=== PATIENT | male | born 1940 | race Caucasian/White ===

== ENCOUNTER 2017-01-26 08:03 | Inpatient (IN) ==
[2017-01-26] MEDS ORDERED: ASPIRIN PO STA (08:18)
[2017-01-26] MEDS ORDERED: ALBUTEROL NEB INH ONE (08:41)
[2017-01-26] MEDS ORDERED: ATROVENT NEB INH ONE (08:43)
[2017-01-26] MEDS ORDERED: SOLU-MEDROL IV ONE (08:43)
[2017-01-26 08:45] LABS: BASO% 0.4 % (0.0-0.8); EOS# 0.09 X1000 (0.0-0.7); EOS% 0.6 % (0.0-10.0); HEMATOCRIT 34.1 % (42.0-52.0); HEMOGLOBIN 10.8 g/dL (14.0-18.0); IMM GRAN# 0.04 X1000 (0.0-0.04); IMM GRAN% 0.3 % (0.0-0.5); LYMPH# 1.15 X1000 (1.2-3.4); LYMPH% 7.5 % (20.5-51.1); MANUAL DIFF NEEDED? NO; MCHC 31.7 g/dL (33-37); MONO# 0.86 X1000 (0.11-0.59); MONO% 5.6 % (1.7-9.3); MPV 11.4 FL (7.4-10.4); NEUT% 85.6 % (42.2-75.2); PLT 201 X1000 (130-400); RBC 3.48 XMIL (4.7-6.1)
--- NOTE | 2017-01-26 08:45 | Diag Imaging Result Doc PS360 ---
EXAM: CHEST-1 VIEW INDICATION: CP TECHNIQUE: One view COMPARISON: 08/18/2016 FINDINGS: The lungs are somewhat hyperinflated, stable. The lungs are grossly clear. There is no discrete pleural fluid collection or pneumothorax. The cardiomediastinal silhouette and central vasculature are grossly unremarkable. IMPRESSION: Suggestion of at least mild COPD that is stable. No definite acute pathology. Electronically signed by Pablo Rivera 01/26/2017 8:43 AM
[2017-01-26 09:00] LABS: INR 0.99; PROTIME 10.4 Seconds (9.2-11.7); PTT 28.9 Seconds (22.0-36.0)
[2017-01-26 09:08] LABS: ALBUMIN 4.4 g/dL (3.5-5.0); CALCIUM 9.7 mg/dL (8.8-10.2); MAGNESIUM 1.8 mg/dL (1.5-2.7); POTASSIUM 4.7 mmol/L (3.5-5.1); TOTAL BILIRUBIN 0.53 mg/dL (0.20-1.00)
--- NOTE | 2017-01-26 10:07 | EKG Report ---
Test Performed on : 01/26/2017 08:13:47 AM Test Reason : sob Blood Pressure : / mmHG Vent. Rate : 118 BPM Atrial Rate : 118 BPM P-R Int : 156 ms QRS Dur : 088 ms QT Int : 314 ms P-R-T Axes : 085 072 068 degrees QTc Int : 440 ms Sinus tachycardia. with occasional premature ventricular complexes. Nonspecific ST abnormality Abnormal ECG When compared with ECG of 13-DEC-2016 11:14, premature ventricular complexes. are now present ST now depressed in Inferior leads Unconfirmed Result
[2017-01-26] MEDS ORDERED: ROCEPHIN 1 GM/NS 1 GM/50 ML IVPB IV ONE (10:43)
[2017-01-26] MEDS ORDERED: ZITHROMAX 500 MG/NS 500 MG/250 ML IVPB IV ONE (10:43)
[2017-01-26 11:07] LABS: ALLEN TEST YES; BE 8.9 mmoll (-3.0-3.0); BLOOD TYPE ARTERIAL; DRAW SITE R RADIAL; METHB 0.9 % (0.0-1.5); O2(CT) 14.4 mL/dL (15.0-23.0); PO2(98.6) 124 mmHg (60-100); SAMPLE BLOOD; SAO2 100.3 % (95.0-100.0); THB 10.3 g/dL (11.5-17.4); pH(98.6) 7.43 (7.35-7.45)
[2017-01-26 11:10] LABS: MODALITY CANNULA; PCO2(98.6) 52 mmHg (35-45)
--- NOTE | 2017-01-26 12:11 | PROVIDER DOCUMENTATION ---
This chart was entered by Grant Perez Scribe, acting as scribe for Victoriano Whitfield MD. HPI-Respiratory General - General Chief Complaint: Shortness of Breath Stated Complaint: SOB/ELEVATED HEART RATE Time Seen by Provider: 01/26/17 08:41 Source: patient Allergies/Adverse Reactions: Patient Allergies Allergy/AdvReac Type Severity Reaction Status Date / Time No Known Allergies Allergy Verified 01/26/17 09:40 Home Medications: Home Medication List Medication Instructions Recorded Confirmed Last Taken Type Budesonide [Pulmicort] 01/26/17 Unknown History Cyclobenzaprine [Flexeril] 1 tab PO BID 01/26/17 01/26/17 Unknown History Digoxin 125 mcg PO DAILY 01/26/17 01/26/17 Unknown History Diltiazem HCl [Diltiazem ER] 120 mg PO BID 01/26/17 01/26/17 Unknown History Ferrous Sulfate 325 mg PO DAILY 01/26/17 01/26/17 Unknown History Fluticasone/Salmeterol [Advair 01/26/17 Unknown History 250-50 Diskus] Furosemide 40 mg PO DAILY 01/26/17 01/26/17 Unknown History Lisinopril/Hydrochlorothiazide 1 tab PO DAILY 01/26/17 01/26/17 Unknown History [Lisinopril-Hctz 20-12.5 mg Tab] Magnesium 01/26/17 Unknown History Meloxicam [Mobic] 15 mg PO DAILY 01/26/17 01/26/17 Unknown History Metoprolol [Lopressor] 50 mg PO DAILY 01/26/17 01/26/17 Unknown History Montelukast Sodium [Singulair] 10 mg PO DAILY 01/26/17 01/26/17 Unknown History Omeprazole 20 mg PO DAILY 01/26/17 01/26/17 Unknown History Roflumilast [Daliresp] 1 tab PO DAILY 01/26/17 01/26/17 Unknown History Tiotropium [place] Inhaler 18 mcg IH DAILY 01/26/17 01/26/17 Unknown History [Spiriva] - History of Present Illness-Resp Nature of Presenting Problem: patient is a 76 y/o M that presents to the ER with a few days of shortness of breath that has gotten worse. He is on continuous O2 at home due to COPD. His o2 saturation 74% on 4L. Patient reports runny nose and cough(productive). denies fever/chills, n/v/d, or chest pain Quality of Pain: reports: tightness Severity in ED: reports: moderate Onset/Duration: reports: gradual, other (few days) Timing: reports: still present, getting worse Context: denies: recent URI, out of meds, sports/exercise Cough Quality/Degree: reports: moderate, productive cough Episode Frequency: chronic episodes Current Respiratory Medication Therapy: Initiated see nurses note Modifying Factors: worse with: coughing Associated Symptoms: reports: cough, nasal drainage, shortness of breath, short of breath. denies: dizziness, earache, fever/chills, flu-like symptoms, sore throat Recently seen or treated by another doctor?: No Review of Systems - Adult - REVIEW OF SYSTEMS - ADULT Constitutional: denies: chills, fever Eyes: reports: no symptoms reported Ears, Nose, Mouth & Throat: reports: sinus problem. denies: ear discharge, ear pain, throat pain, throat swelling Cardiovascular: denies: chest pain, syncope Respiratory: reports: cough, shortness of breath Gastrointestinal: denies: abdominal pain, nausea, vomiting Genitourinary: reports: no symptoms reported Musculoskeletal: reports: no symptoms reported Integumentary: reports: no symptoms reported Neurological: denies: dizziness/vertigo, headache/migraines Psychiatric: reports: no symptoms reported Endocrine: reports: no symptoms reported Hematologic/Lymphatic: reports: no symptoms reported Allergic/Immunologic: reports: no symptoms reported All Other Systems: Reviewed and Negative Past History - Adult - PAST MEDICAL HISTORY-ADULT Review of Records: reports: Old Records Reviewed, Nursing Assessment Review, Medications Reviewed Cardiovascular: reports: HTN Respiratory: reports: COPD Musculoskeletal: reports: chronic pain (backpain) - PRIOR SURGERIES/PROCEDURES Surgical/Procedure History: reports: appendectomy - IMMUNIZATION STATUS Childhood Immunizations: UTD Flu Vaccine: See Nurse Assessment - FAMILY HISTORY Family History: reviewed, not pertinent - SOCIAL HISTORY Smoking: quit greater than 1 year, cigarettes Living Situation: family Physical Exam-General - PHYSICAL EXAM-ADULT Initial Vital Signs Reviewed: Yes - CONSTITUTIONAL General Appearance: alert, mild distress - EYES Eyes: PERRL/EOMI, pink conjunctivae - HEAD, EARS, NOSE, MOUTH & THROAT HENMT: normocephalic/atraumatic, moist mucous membranes, normal ENT inspection - NECK Neck: full range of motion, normal inspection - RESPIRATORY Respiratory: no respiratory distress, no accessory muscle use, wheezing - CARDIOVASCULAR Cardiovascular: no edema, no JVD, tachycardia - GASTROINTESTINAL (ABDOMEN) Abdominal Exam: normal bowel sounds, non tender, soft - MUSCULOSKELETAL Extremity: normal range of motion, normal inspection, no pedal edema - SKIN Integumentary: normal color, warm/dry - NEUROLOGIC Neurologic: student liaison officer II-XII nml as tested, no motor/sensory deficits - PSYCHIATRIC Psych/Mental Status: normal mood/affect, normal thought content, normal thought process, oriented x 3 Progress - PLAN OF CARE/RESULTS Progress/Plan/Lab Results: Vital Signs - 8 hr 01/26/17 08:14 01/26/17 08:50 Temperature 98.3 F Pulse Rate 122 H 97 H Respiratory Rate 20 16 Blood Pressure 118/90 O2 Sat by Pulse Oximetry 98 94 L Laboratory Results - last 24 hr 01/26/17 01/26/17 01/26/17 08:30 08:30 08:30 WBC 15.43 H RBC 3.48 L Hgb 10.8 L Hct 34.1 L MCV 98.0 MCH 31.0 MCHC 31.7 L RDW Std Deviation 13.3 Plt Count 201 MPV 11.4 H Immature Gran % (Auto) 0.3 Neut % (Auto) 85.6 H Lymph % (Auto) 7.5 L [place] % (Auto) 5.6 Eos % (Auto) 0.6 Baso % (Auto) 0.4 Immature Gran # (Auto) 0.04 Neut # (Auto) 13.23 H Lymph # (Auto) 1.15 L [place] # (Auto) 0.86 H Eos # (Auto) 0.09 Baso # (Auto) 0.06 PT INR PTT (Actin FS) D-Dimer Specimen Type Sample Site pH pCO2 pO2 HCO3 Base Excess Oxyhemoglobin ABG O2 Sat (Calculated) ABG O2 Saturation ABG Carboxyhemoglobin ABG Methemoglobin Mazin Test A-a O2 Difference Total Hemoglobin Lactate Liter Flow Blood Gas Modality FiO2 % Sodium 142 Potassium 4.7 Chloride 96 L Carbon Dioxide 32 Anion Gap 14 BUN 23 H Creatinine 1.3 H Estimated GFR/1.73 m2 54 BUN/Creatinine Ratio 18 Glucose 164 H Calculated Osmolality 290 Calcium 9.7 Magnesium 1.8 Total Bilirubin 0.53 AST 29 ALT 29 Alkaline Phosphatase 112 Creatine Kinase 45 Troponin T Mrr-Q-Ecsycsczgij Pept 314 Total Protein 8.0 Albumin 4.4 Globulin 3.6 Albumin/Globulin Ratio 1.2 Plasma Lactate 01/26/17 01/26/17 01/26/17 08:30 08:30 08:45 WBC RBC Hgb Hct MCV MCH MCHC RDW Std Deviation Plt Count MPV Immature Gran % (Auto) Neut % (Auto) Lymph % (Auto) [place] % (Auto) Eos % (Auto) Baso % (Auto) Immature Gran # (Auto) Neut # (Auto) Lymph # (Auto) [place] # (Auto) Eos # (Auto) Baso # (Auto) PT INR PTT (Actin FS) D-Dimer 0.12 Specimen Type Sample Site pH pCO2 pO2 HCO3 Base Excess Oxyhemoglobin ABG O2 Sat (Calculated) ABG O2 Saturation ABG Carboxyhemoglobin ABG Methemoglobin Mazin Test A-a O2 Difference Total Hemoglobin Lactate Liter Flow Blood Gas Modality FiO2 % Sodium Potassium Chloride Carbon Dioxide Anion Gap BUN Creatinine Estimated GFR/1.73 m2 BUN/Creatinine Ratio Glucose Calculated Osmolality Calcium Magnesium Total Bilirubin AST ALT Alkaline Phosphatase Creatine Kinase Troponin T 0.031 Rtd-F-Monfhfwifuf Pept Total Protein Albumin Globulin Albumin/Globulin Ratio Plasma Lactate 3.1 H 01/26/17 01/26/17 08:45 10:54 WBC RBC Hgb Hct MCV MCH MCHC RDW Std Deviation Plt Count MPV Immature Gran % (Auto) Neut % (Auto) Lymph % (Auto) [place] % (Auto) Eos % (Auto) Baso % (Auto) Immature Gran # (Auto) Neut # (Auto) Lymph # (Auto) [place] # (Auto) Eos # (Auto) Baso # (Auto) PT 10.4 INR 0.99 PTT (Actin FS) 28.9 D-Dimer Specimen Type ARTERIAL Sample Site R RADIAL pH 7.43 pCO2 52 H* pO2 124 H HCO3 31.9 H Base Excess 8.9 H Oxyhemoglobin 97.6 ABG O2 Sat (Calculated) 14.4 L ABG O2 Saturation 100.3 H ABG Carboxyhemoglobin 1.80 ABG Methemoglobin 0.9 Mazin Test YES A-a O2 Difference 68.0 Total Hemoglobin 10.3 L Lactate 3.20 H Liter Flow 4.0 Blood Gas Modality CANNULA FiO2 % 36.0 Sodium Potassium Chloride Carbon Dioxide Anion Gap BUN Creatinine Estimated GFR/1.73 m2 BUN/Creatinine Ratio Glucose Calculated Osmolality Calcium Magnesium Total Bilirubin AST ALT Alkaline Phosphatase Creatine Kinase Troponin T Oqq-F-Sskgtxsofar Pept Total Protein Albumin Globulin Albumin/Globulin Ratio Plasma Lactate Orders Category Date Time Status Cardiac Monitoring DIRECTED Care 01/26/17 08:18 Active Oxygen Therapy- ED Nursing DIRECTED Care 01/26/17 08:18 Active Saline Loc NOW Care 01/26/17 08:18 Active CHEST-1 VIEW [RAD] Stat Exams 01/26/17 08:18 Completed ABG [RESP] Routine Lab 01/26/17 10:54 Completed BLOOD CULTURE [BLDCUL] Stat Lab 01/26/17 08:43 Received CBC WITH ELECTRONIC DIFF [HEME] Stat Lab 01/26/17 08:30 Completed CK PROFILE [SP CHEM] Stat Lab 01/26/17 08:30 Completed COMPREHENSIVE METABOLIC PANEL [CHEM] Stat Lab 01/26/17 08:30 Completed D-DIMER [CHEM] Stat Lab 01/26/17 08:45 Completed LACTATE, PLASMA [CHEM] Stat Lab 01/26/17 08:30 Completed MAGNESIUM [CHEM] Stat Lab 01/26/17 08:30 Completed PRO B-NATRIURETIC PEPTIDE Stat Lab 01/26/17 08:30 Completed PROTIME WITH INR [COAG] Stat Lab 01/26/17 08:45 Completed PTT [COAG] Stat Lab 01/26/17 08:45 Completed TROPONIN T Stat Lab 01/26/17 08:30 Completed Albuterol [Albuterol Neb] Med 01/26/17 08:41 Discontinued 7.5 mg INH NOW ONE Azithromycin 500 mg/Ns [Zithromax 500 mg/Ns] Med 01/26/17 10:43 Discontinued 500 mg in 250 ml IV NOW CefTRIAXONE 1 GM/NS [Rocephin 1 gm/Ns] Med 01/26/17 10:43 Discontinued 1 gm in 50 ml IV NOW Ipratropium [place] Neb [Atrovent Neb] Med 01/26/17 08:43 Discontinued 0.5 mg INH NOW ONE Methylprednisolone Sod Succ [Solu-Medrol] Med 01/26/17 08:43 Discontinued 125 mg IV NOW ONE Aerosol Treatments Routine Oth 01/26/17 08:42 Completed Aerosol Treatments Routine Oth 01/26/17 08:43 Completed Aerosol Treatments Stat Oth 01/26/17 08:42 Completed Aerosol Treatments Stat Oth 01/26/17 08:43 Completed EKG [EKG] Stat Ther 01/26/17 08:09 Draft Vital Signs Temp Pulse Resp BP Pulse Ox 01/26/17 08:50 97 H 16 94 L 01/26/17 08:14 98.3 F 122 H 20 118/90 98 No Known Allergies Allergy (Verified 01/26/17 09:40) Budesonide [Pulmicort] 01/26/17 Cyclobenzaprine [Flexeril] 1 tab PO BID 01/26/17 Digoxin 125 mcg PO DAILY 01/26/17 Diltiazem HCl [Diltiazem ER] 120 mg PO BID 01/26/17 Ferrous Sulfate 325 mg PO DAILY 01/26/17 Fluticasone/Salmeterol [Advair 250-50 Diskus] 01/26/17 Furosemide 40 mg PO DAILY 01/26/17 Lisinopril/Hydrochlorothiazide [Lisinopril-Hctz 20-12.5 mg Tab] 1 tab PO DAILY 01/26/17 Magnesium 01/26/17 Meloxicam [Mobic] 15 mg PO DAILY 01/26/17 Metoprolol [Lopressor] 50 mg PO DAILY 01/26/17 Montelukast Sodium [Singulair] 10 mg PO DAILY 01/26/17 Omeprazole 20 mg PO DAILY 01/26/17 Roflumilast [Daliresp] 1 tab PO DAILY 01/26/17 Tiotropium [place] Inhaler [Spiriva] 18 mcg IH DAILY 01/26/17 Laboratory 01/26/17 01/26/17 01/26/17 10:54 08:45 08:45 WBC RBC Hgb Hct MCV MCH MCHC RDW Std Deviation Plt Count MPV Immature Gran % (Auto) Neut % (Auto) Lymph % (Auto) [place] % (Auto) Eos % (Auto) Baso % (Auto) Immature Gran # (Auto) Neut # (Auto) Lymph # (Auto) [place] # (Auto) Eos # (Auto) Baso # (Auto) PT 10.4 INR 0.99 PTT (Actin FS) 28.9 D-Dimer 0.12 Specimen Type ARTERIAL Sample Site R RADIAL pH 7.43 pCO2 52 H* pO2 124 H HCO3 31.9 H Base Excess 8.9 H Oxyhemoglobin 97.6 ABG O2 Sat (Calculated) 14.4 L ABG O2 Saturation 100.3 H ABG Carboxyhemoglobin 1.80 ABG Methemoglobin 0.9 Mazin Test YES A-a O2 Difference 68.0 Total Hemoglobin 10.3 L Lactate 3.20 H Liter Flow 4.0 Blood Gas Modality CANNULA FiO2 % 36.0 Sodium Potassium Chloride Carbon Dioxide Anion Gap BUN Creatinine Estimated GFR/1.73 m2 BUN/Creatinine Ratio Glucose Calculated Osmolality Calcium Magnesium Total Bilirubin AST ALT Alkaline Phosphatase Creatine Kinase Troponin T Fvx-Q-Zlcmfqncglb Pept Total Protein Albumin Globulin Albumin/Globulin Ratio Plasma Lactate 01/26/17 01/26/17 01/26/17 08:30 08:30 08:30 WBC RBC Hgb Hct MCV MCH MCHC RDW Std Deviation Plt Count MPV Immature Gran % (Auto) Neut % (Auto) Lymph % (Auto) [place] % (Auto) Eos % (Auto) Baso % (Auto) Immature Gran # (Auto) Neut # (Auto) Lymph # (Auto) [place] # (Auto) Eos # (Auto) Baso # (Auto) PT INR PTT (Actin FS) D-Dimer Specimen Type Sample Site pH pCO2 pO2 HCO3 Base Excess Oxyhemoglobin ABG O2 Sat (Calculated) ABG O2 Saturation ABG Carboxyhemoglobin ABG Methemoglobin Mazin Test A-a O2 Difference Total Hemoglobin Lactate Liter Flow Blood Gas Modality FiO2 % Sodium Potassium Chloride Carbon Dioxide Anion Gap BUN Creatinine Estimated GFR/1.73 m2 BUN/Creatinine Ratio Glucose Calculated Osmolality Calcium Magnesium Total Bilirubin AST ALT Alkaline Phosphatase Creatine Kinase Troponin T 0.031 Jkt-T-Krpdlwctlbb Pept 314 Total Protein Albumin Globulin Albumin/Globulin Ratio Plasma Lactate 3.1 H 01/26/17 01/26/17 08:30 08:30 WBC 15.43 H RBC 3.48 L Hgb 10.8 L Hct 34.1 L MCV 98.0 MCH 31.0 MCHC 31.7 L RDW Std Deviation 13.3 Plt Count 201 MPV 11.4 H Immature Gran % (Auto) 0.3 Neut % (Auto) 85.6 H Lymph % (Auto) 7.5 L [place] % (Auto) 5.6 Eos % (Auto) 0.6 Baso % (Auto) 0.4 Immature Gran # (Auto) 0.04 Neut # (Auto) 13.23 H Lymph # (Auto) 1.15 L [place] # (Auto) 0.86 H Eos # (Auto) 0.09 Baso # (Auto) 0.06 PT INR PTT (Actin FS) D-Dimer Specimen Type Sample Site pH pCO2 pO2 HCO3 Base Excess Oxyhemoglobin ABG O2 Sat (Calculated) ABG O2 Saturation ABG Carboxyhemoglobin ABG Methemoglobin Mazin Test A-a O2 Difference Total Hemoglobin Lactate Liter Flow Blood Gas Modality FiO2 % Sodium 142 Potassium 4.7 Chloride 96 L Carbon Dioxide 32 Anion Gap 14 BUN 23 H Creatinine 1.3 H Estimated GFR/1.73 m2 54 BUN/Creatinine Ratio 18 Glucose 164 H Calculated Osmolality 290 Calcium 9.7 Magnesium 1.8 Total Bilirubin 0.53 AST 29 ALT 29 Alkaline Phosphatase 112 Creatine Kinase 45 Troponin T Bbz-X-Pmijdiexjlq Pept Total Protein 8.0 Albumin 4.4 Globulin 3.6 Albumin/Globulin Ratio 1.2 Plasma Lactate Result Diagrams: 01/26/17 08:30 01/26/17 08:30 - XRAY 1 XRAY Study: Chest Impression: Abnormal XRAY Interpretation: mild COPD - CONSULTS/PCP/HOSPITALIST Notification #1 *Consult/PCP/Hospitalist*: Time Discussed: 11:47 Reason/Comments: copd exacerbation, will place orders in Consult Disposition: Admit Departure - Departure Date of Disposition Decision: 01/26/17 Time of Disposition Decision: 11:49 DIAGNOSIS: COPD exacerbation, Leukocytosis, Elevated lactic acid level Disposition: ADMITTED INPATIENT 09 Certified Medical Emergency: Emergent Condition: Stable Referrals and Follow-Ups: Crispin Burroughs MD [Primary Care Provider] - - Critical Care Note This patient required my direct & personal management of CC.: No This chart was documented by the indicated scribe, (Grant Perez, Blad[place]) and accurately reflects the services I performed and decisions made by me, Victoriano Whitfield MD, as attested by the provider's signature.
[2017-01-26] MEDS ORDERED: TYLENOL PO PRN (17:36)
[2017-01-26] MEDS: SOLU-MEDROL IV SCH (18:00)
--- NOTE | 2017-01-26 18:06 | HISTORY AND PHYSICAL ---
Mr. Peña who is a 76-year-old white gentleman started having some fever and rhinitis and this morning he started getting more short of breath. He had persistent cough. His oxygen saturation was around 71% according to him, and heart rate went up to 120 and he came to the emergency room. After he settled down in the emergency room the heart rate went down some. Oxygen saturation was better later on. He has a known case of severe COPD and smoked heavily in the past except for the last 7 years that he has not smoked. He does not drink. ALLERGIES: He is not allergic to any medications. PAST SURGICAL HISTORY: Reveals he had recent history of right shoulder surgery by Dr. Yin about a month ago and he had a right inguinal hernia surgery performed on the right side. Appendectomy was performed. REVIEW OF SYSTEMS: Other than shortness of breath, cough with expectoration. He was feeling very tight in the chest. There is no hemoptysis. The sputum was putrid. Cardiopulmonary: Other than tachycardia fast heart rate and nervousness. It was unremarkable. PHYSICAL EXAMINATION: VITAL SIGNS: Here now reveals a heart rate of 107, pulse 81, respiratory rate 18 per minute, blood pressure 156/56 and his oxygen saturation now with 2 L is 100%. HEENT: Head normocephalic. Pupils PERRLA. Fundus examination not done. NECK: Supple. JVP normal. ENT EXAMINATION: Unremarkable. There is no evidence of lymphadenopathy, thyroid enlargement, pedal edema, calf tenderness, anemia, cyanosis or clubbing. Pedal pulses well felt. BREASTS: Exam normal. LUNGS: Reveal bilateral severe expiratory wheezing with basilar rales. PMI in the normal position. HEART: Sounds normal. No murmur, gallop or rub noted. ABDOMEN: Nondistended. Hernial orifices normal. No guarding, rigidity, free fluid, masses, or organomegaly. Bowel sounds normal. RECTAL: Deferred. ENTERTAINER OR VARIETY ARTIST: Higher functions normal. Cranial nerves normal. Motor and sensory system examination is unremarkable. Deep tendon reflexes normal. Plantars downgoing. SKULL AND SPINE EXAMINATION: Reveals painful movements of the lumbosacral spine. No cerebellar signs or signs of meningeal irritation. LOCOMOTOR EXAM: Unremarkable. SKIN EXAM: Unremarkable. CLINICAL IMPRESSION: Acute bronchitis, COPD acute exacerbation. PLAN: Start IV antibiotics, steroids, oxygen as well as respiratory therapy. His white count is elevated. Chest x-ray reveals severe COPD. cc: Crispin Burroughs MD
[2017-01-26] MEDS: NORCO-10 PO SCH (18:30)
[2017-01-26] MEDS: FLEXERIL PO SCH (21:12)
[2017-01-26] MEDS: CARDIZEM CD PO SCH (21:12)
[2017-01-26] MEDS ORDERED: ATIVAN PO ONE (21:55)
[2017-01-26] MEDS: DUONEB (A & A) INH SCH (21:56)
[2017-01-27] MEDS: DUONEB (A & A) INH SCH ×4 (03:03→21:00)
[2017-01-27] MEDS: SOLU-MEDROL IV SCH ×3 (05:59→21:30)
[2017-01-27] MEDS: PRILOSEC PO SCH (06:00)
[2017-01-27] MEDS: MOBIC PO SCH (08:18)
[2017-01-27] MEDS: LANOXIN PO SCH (08:18)
[2017-01-27] MEDS: LASIX PO SCH (08:19)
[2017-01-27] MEDS: FERROUS SULFATE PO SCH (08:19)
[2017-01-27] MEDS: CARDIZEM CD PO SCH ×2 (08:19→21:30)
[2017-01-27] MEDS: SINGULAIR PO SCH (08:19)
[2017-01-27] MEDS: LOPRESSOR PO SCH (08:19)
[2017-01-27] MEDS: PRINZIDE 20/12.5MG PO SCH (08:20)
[2017-01-27] MEDS: DALIRESP PO SCH (08:20)
[2017-01-27] MEDS: FLEXERIL PO SCH ×2 (08:20→21:30)
[2017-01-27] MEDS: NORCO-10 PO SCH ×3 (08:20→21:35)
--- NOTE | 2017-01-27 09:30 | PROGRESS NOTE ---
DATE: 01/27/2017 Mr. Peña was very nervous last night. We will give him Ativan p.r.n. now. His lungs still reveal some significant wheezing. Heart sounds are normal. Abdomen is soft, nontender. We will continue with the current management. -5 cc: Crispin Burroughs MD
[2017-01-27] MEDS: ROCEPHIN 1 GM/NS 1 GM/50 ML IVPB IV SCH (10:31)
[2017-01-27] MEDS ORDERED: ATIVAN PO ONE (19:48)
[2017-01-28] MEDS: DUONEB (A & A) INH SCH ×4 (04:05→20:38)
[2017-01-28] MEDS: SOLU-MEDROL IV SCH ×3 (05:32→22:17)
[2017-01-28] MEDS: PRILOSEC PO SCH (05:33)
[2017-01-28] MEDS: MOBIC PO SCH (08:48)
[2017-01-28] MEDS: LANOXIN PO SCH (08:48)
[2017-01-28] MEDS: DALIRESP PO SCH (08:49)
[2017-01-28] MEDS: CARDIZEM CD PO SCH ×2 (08:49→22:17)
[2017-01-28] MEDS: PRINZIDE 20/12.5MG PO SCH (08:49)
[2017-01-28] MEDS: SINGULAIR PO SCH (08:49)
[2017-01-28] MEDS: LOPRESSOR PO SCH (08:49)
[2017-01-28] MEDS: FERROUS SULFATE PO SCH (08:49)
[2017-01-28] MEDS: FLEXERIL PO SCH ×2 (08:49→22:16)
[2017-01-28] MEDS: LASIX PO SCH (08:50)
[2017-01-28] MEDS: NORCO-10 PO SCH ×3 (08:55→17:50)
--- NOTE | 2017-01-28 11:10 | PROGRESS NOTE ---
DATE: 01/28/2017 Mr. Peña is feeling better. He has some still has some shakes and has some expiratory wheezing. We cut down on the Solu-Medrol that he is on. The overall condition is unchanged. He is improving. We will continue the IV antibiotics and breathing treatment. cc: Crispin Burroughs MD
[2017-01-28] MEDS: ROCEPHIN 1 GM/NS 1 GM/50 ML IVPB IV SCH (11:25)
[2017-01-29] MEDS: DUONEB (A & A) INH SCH ×4 (03:57→21:35)
[2017-01-29] MEDS: PRILOSEC PO SCH (06:17)
[2017-01-29] MEDS: SOLU-MEDROL IV SCH ×2 (06:17→18:32)
[2017-01-29] MEDS: LOPRESSOR PO SCH (10:26)
[2017-01-29] MEDS: NORCO-10 PO SCH ×3 (10:26→18:32)
[2017-01-29] MEDS: SINGULAIR PO SCH (10:26)
[2017-01-29] MEDS: PRINZIDE 20/12.5MG PO SCH (10:27)
[2017-01-29] MEDS: LASIX PO SCH (10:27)
[2017-01-29] MEDS: DALIRESP PO SCH (10:27)
[2017-01-29] MEDS: CARDIZEM CD PO SCH ×2 (10:27→21:09)
[2017-01-29] MEDS: MOBIC PO SCH (10:27)
[2017-01-29] MEDS: FLEXERIL PO SCH ×2 (10:27→21:09)
[2017-01-29] MEDS: FERROUS SULFATE PO SCH (10:28)
[2017-01-29] MEDS: LANOXIN PO SCH (10:29)
--- NOTE | 2017-01-29 11:38 | PROGRESS NOTE ---
DATE: 01/29/2017 SUBJECTIVE: The patient says he is feeling a little bit better. He is still very shaky and nervous from his medications. He said he had a little wheezing earlier this morning but is not wheezing now. OBJECTIVE: Blood pressure is 156/56, respirations 20, pulse 84, temperature 98.0 degrees Fahrenheit. He is on 4 L of oxygen and has 100% FiO2.HEENT: Essentially normal. Neck: Supple without thyromegaly. Lungs: Have scattered rales but no wheezes at this time. Heart: Regular rate and rhythm without murmurs, gallops, or friction rubs. Abdomen: Soft. Active bowel sounds. No organomegaly or tenderness. Neurological: Patient is shaking all over but otherwise neurologically intact. ASSESSMENT: COPD. PLAN: We will decrease Solu-Medrol slightly. cc: MD Crispin Mims Jr, MD
[2017-01-29] MEDS: ROCEPHIN 1 GM/NS 1 GM/50 ML IVPB IV SCH (11:50)
[2017-01-30] MEDS: DUONEB (A & A) INH SCH ×4 (04:04→21:15)
[2017-01-30] MEDS: PRILOSEC PO SCH ×2 (05:58→07:32)
[2017-01-30] MEDS: SOLU-MEDROL IV SCH ×2 (05:58→17:01)
[2017-01-30] MEDS: LANOXIN PO SCH (09:08)
[2017-01-30] MEDS: FLEXERIL PO SCH ×2 (09:08→20:41)
[2017-01-30] MEDS: PRINZIDE 20/12.5MG PO SCH (09:08)
[2017-01-30] MEDS: FERROUS SULFATE PO SCH (09:08)
[2017-01-30] MEDS: CARDIZEM CD PO SCH ×2 (09:09→20:41)
[2017-01-30] MEDS: LASIX PO SCH (09:09)
[2017-01-30] MEDS: MOBIC PO SCH (09:09)
[2017-01-30] MEDS: NORCO-10 PO SCH ×3 (09:10→16:57)
[2017-01-30] MEDS: SINGULAIR PO SCH (09:10)
[2017-01-30] MEDS: DALIRESP PO SCH (09:10)
[2017-01-30] MEDS: LOPRESSOR PO SCH (09:11)
[2017-01-30] MEDS: ROCEPHIN 1 GM/NS 1 GM/50 ML IVPB IV SCH (10:37)
--- NOTE | 2017-01-30 11:49 | PROGRESS NOTE ---
DATE: 01/30/2017 SUBJECTIVE: The patient says he is feeling a little bit better. He is a little less anxious. We did decrease his Solu-Medrol slightly yesterday. OBJECTIVE: Vital Signs: Blood pressure is 132/56, respirations 16 and unlabored. Pulse 92 and regular, temperature 98.5 degrees Fahrenheit. He is on 4 L of oxygen per nasal cannula and his O2 saturation is 99%. HEENT: He is normocephalic. EOMs intact. PERRLA. Throat clear. Lungs: Have some end-expiratory wheezing in all lung douglas but this is not severe. He has a few scattered rales in the bases. Heart: Regular rate and rhythm without murmurs, gallops, or friction rubs. Abdomen: Soft. Active bowel sounds. No organomegaly or tenderness. Neurological: Intact grossly except he appears tremulous due to his steroids and his breathing. ASSESSMENT: 1. Chronic obstructive pulmonary disease. 2. Anxiety. PLAN: Continue current treatment. cc: MD Crispin Mims Jr, MD
[2017-01-31] MEDS: DUONEB (A & A) INH SCH ×4 (03:30→21:30)
[2017-01-31] MEDS: PRILOSEC PO SCH (06:05)
[2017-01-31] MEDS: SOLU-MEDROL IV SCH ×2 (06:05→18:01)
[2017-01-31] MEDS: NORCO-10 PO SCH ×4 (06:07→18:01)
[2017-01-31] MEDS: DALIRESP PO SCH (08:17)
[2017-01-31] MEDS: MOBIC PO SCH (08:18)
[2017-01-31] MEDS: LASIX PO SCH (08:18)
[2017-01-31] MEDS: CARDIZEM CD PO SCH ×2 (08:18→20:34)
[2017-01-31] MEDS: LOPRESSOR PO SCH (08:18)
[2017-01-31] MEDS: FLEXERIL PO SCH ×2 (08:18→20:34)
[2017-01-31] MEDS: FERROUS SULFATE PO SCH (08:19)
[2017-01-31] MEDS: SINGULAIR PO SCH (08:19)
[2017-01-31] MEDS: PRINZIDE 20/12.5MG PO SCH (08:19)
[2017-01-31] MEDS: LANOXIN PO SCH (08:20)
--- NOTE | 2017-01-31 09:07 | PROGRESS NOTE ---
DATE: 01/31/2017 Mr. Peña says he is feeling slightly better but he gets very short of breath as soon as he gets out of the bathroom to sit in his bed. He gives out. His breathing is still worse. We will continue the antibiotics as well as the breathing treatment and reduce the Solu-Medrol today. IMPRESSION: 1. Acute bronchitis. 2. Chronic obstructive pulmonary disease. 3. Severe back pain. cc: Crispin Burroughs MD
[2017-01-31] MEDS: ROCEPHIN 1 GM/NS 1 GM/50 ML IVPB IV SCH (11:12)
[2017-02-01] MEDS: DUONEB (A & A) INH SCH ×2 (03:19→10:43)
[2017-02-01] MEDS: PRILOSEC PO SCH (06:17)
[2017-02-01] MEDS: SOLU-MEDROL IV SCH (06:17)
[2017-02-01 07:41] VITALS: BP 143/60
[2017-02-01] MEDS: SINGULAIR PO SCH (08:31)
[2017-02-01] MEDS: PRINZIDE 20/12.5MG PO SCH (08:31)
[2017-02-01] MEDS: DALIRESP PO SCH (08:31)
[2017-02-01] MEDS: FLEXERIL PO SCH (08:32)
[2017-02-01] MEDS: FERROUS SULFATE PO SCH (08:32)
[2017-02-01] MEDS: LANOXIN PO SCH (08:32)
[2017-02-01] MEDS: LOPRESSOR PO SCH (08:35)
[2017-02-01] MEDS: LASIX PO SCH (08:35)
[2017-02-01] MEDS: MOBIC PO SCH (08:35)
[2017-02-01] MEDS: NORCO-10 PO SCH (08:44)
--- NOTE | 2017-02-01 11:31 | PROGRESS NOTE ---
DATE: 02/01/2017 SUBJECTIVE: Mr. Peña, who is a 76-year-old white gentleman, is doing better. He is on chronic steroid therapy. He was feeling very weak yesterday, however he is better. He says he can be discharged today. He has minimal wheezing, practically none knowing him. He is going to walk more when he goes home. I am going to prescribe him prednisone 10 mg daily for 7 days and Keflex. FINAL DIAGNOSES: 1. Chronic obstructive pulmonary disease. 2. Back pain. -4 cc: Crispin Burroughs MD
--- NOTE | 2017-02-01 20:31 | DISCHARGE SUMMARY ---
ADMISSION DATE: 01/26/2017 DISCHARGE DATE: 02/01/2017 HISTORY OF PRESENT ILLNESS: Mr. Peña is a 76-year-old, white gentleman with a known case of COPD, coronary artery disease, congestive heart failure, hypertension was admitted with increasing shortness of breath and hypoxia. He had an acute exacerbation of COPD. LABORATORY DATA: In the hospital, chest x-ray revealed presence of mild COPD. No definite acute pathology was noted. EKG revealed sinus tachycardia with a heart rate around 118, with occasional PVCs, nonspecific ST abnormality was noted. Other lab data revealed CBC with white count of 15.43, hemoglobin 10.8. INR was 0.99. Arterial blood gases revealed pH 7.43, pCO2 of 52, PO2 was 124. Chemistry revealed electrolytes normal, BUN 23, creatinine 1.3. IMPRESSION: 1. Acute exacerbation of chronic obstructive pulmonary disease. 2. Mild dehydration, early renal failure. 3. Anxiety state. 4. Degenerative disc disease of the lumbar spine. He will was given a prescription for prednisone 10 mg daily for 7 days and Keflex 500 mg t.i.d. for 7 days. 5. He will be followed in the office within a month. cc: Crispin Burroughs MD
--- NOTE | 2017-02-08 11:08 | DISCHARGE SUMMARY ---
ADMISSION DATE: 01/26/2017 DISCHARGE DATE: 02/01/2017 DISCHARGE SUMMARY ADDENDUM: Mr. Peña was admitted for COPD exacerbation. His creatinine was 1.3 and BUN of 23. He had mild dehydration. He had early renal failure, but probably it was prerenal azotemia from dehydration. It appears like it is mostly abnormal lab findings and not actual renal failure per se or actual renal failure from chronic kidney disease. He had prerenal azotemia from dehydration. cc: Crispin Burroughs MD
== END 2017-02-01 11:58 | disposition home or self-care (01) ==
LOC: ED 08:03 → 3N 14:12
PROVIDERS: ADMIT Internal Medicine; ATTEND Internal Medicine